=== PATIENT | female | born 1955 ===

== ENCOUNTER 2017-05-15 09:28 | Inpatient (IN) | payer OTHER ==
[2017-05-15 09:33] VITALS: BMI 34.7
--- NOTE | 2017-05-15 09:47 | C.PDOC ---
History Of Present Illness 62 Y/O FEMALE REFERRED BY PMD FOR FURTHER EVALUATION OF COUGH, SOB, NEW ONSET WHEEZING X 5 DAYS. PATIENT STATES SHE SAW PMD FOR SAME YEST, WAS STARTED ON ZPAK AND AUGMENTIN 875 05/14. PATIENT ADVISED TO COME TO ER IF PERSIST OR WORSENING SX. LAST DOSE 05/14. PATIENT ADMITS TO [facility] AND DENIES HO LUNG DISEASE OR ASSOCIATED CP. RETURNED FROM [facility] 05[facility]. SP OUTPT XRAY +RUL PNEUMONIA EXAM MILD DIST NONTOXIC HEENT NEG LUNGS +TACHYPNEA, SOB W MILD EXERTION SPEAKING FULL SENTENCES +B/L WHEEZE EXP SCATTERED NO EDEMA REMAINDER NEG Time Seen by Provider: 05/15/17 09:36 Chief Complaint (Nursing): Cough, Cold, Congestion History Per: Patient History/Exam Limitations: no limitations Onset/Duration Of Symptoms: Days Current Symptoms Are (Timing): Still Present Past Medical History Reviewed: Historical Data, Nursing Documentation, Vital Signs Vital Signs: Last Vital Signs Temp 100.5 F H 05/15/17 11:00 Pulse 84 05/15/17 10:50 Resp 20 05/15/17 10:50 BP 120/85 05/15/17 10:50 Pulse Ox 98 05/15/17 10:50 Surgical History: No Surg Hx Family History: States: No Known Family Hx Review Of Systems Constitutional: Negative for: Fever, Chills Cardiovascular: Negative for: Chest Pain Respiratory: Positive for: Cough, Shortness of Breath, Wheezing Gastrointestinal: Negative for: Nausea, Vomiting Skin: Negative for: Rash Physical Exam - Physical Exam Appears: Non-toxic, Other (Mild distress) Skin: Warm, Dry, No Rash Head: Atraumatic, Normacephalic Eye(s): bilateral: Normal Inspection Oral Mucosa: Moist Throat: Normal, No Erythema, No Exudate Neck: Normal ROM, Supple Cardiovascular: Rhythm Regular Respiratory: No Rales, No Rhonchi, Wheezing (B/L scattered expiratory ), Other ( Tachypnea, sob with mild excertion. Speaking in full sentences) Gastrointestinal/Abdominal: Soft, No Tenderness, No Guarding, No Rebound Extremity: No Pedal Edema, Capillary Refill (<2 seconds) Neurological/Psych: Oriented x3, Normal Speech ED Course And Treatment - Laboratory Results Result Diagrams: 05/15/17 10:08 05/15/17 10:08 ECG: Interpreted By Me, Viewed By Me ECG Rhythm: Sinus Rhythm ECG Interpretation: Normal Rate From EC (BPM) O2 Sat by Pulse Oximetry: 96 (RA) Pulse Ox Interpretation: Normal Progress - Re-Evaluation Re-evaluation Note: 05/15/17 09:47 D/W DR MILLS AWARE OF ER FINDINGS. ADMIT 05/15/17 09:48 RECENT OUTPT CXR DONE - Data Reviewed Data Reviewed: Lab, Diagnostic imaging, EKG, Old records - Continuity of Care Discussed patient case with:: Patient, Family-HIPPA compliant, PMD Disposition Counseled Patient/Family Regarding: Studies Performed, Diagnosis - Disposition Disposition: HOSPITALIZED Disposition Time: 09:48 Condition: STABLE - POA Present On Arrival: None - Clinical Impression Clinical Impression: Pneumonia, Dyspnea - Scribe Statement The provider has reviewed the documentation as recorded by the Scribprecious Smith All medical record entries made by the Scribe were at my direction and personally dictated by me. I have reviewed the chart and agree that the record accurately reflects my personal performance of the history, physical exam, medical decision making, and the department course for this patient. I have also personally directed, reviewed, and agree with the discharge instructions and disposition. Decision To Admit - Pt Status Changed To: Hospital Disposition Of: Observation - . Bed Request Type: Regular Admitting Physician: Rajesh Mills Patient Diagnosis: Pneumonia, Dyspnea
[2017-05-15] MEDS ORDERED: Moxifloxacin IV 400mg/250ml NS 400 MG/250 ML BAG IV STA (09:49)
[2017-05-15] MEDS ORDERED: Albuterol 0.083% Inhal Sol (2.5 mg/3 mL) UD INH STA (09:50)
[2017-05-15 10:13] LABS: BASO % 0.4 % (0.0-2.0); EOS % 0.5 % (0.0-4.0); HEMOGLOBIN 12.3 g/dL (11.0-16.0); LYMPH # 0.7 K/uL (1.0-4.3); LYMPH % 18.3 % (20.0-40.0); MEAN CELL VOLUME 77.4 fL (81.0-99.0); MEAN CORPUSCULAR HEMOGLOBIN 25.4 pg (27.0-31.0); MEAN CORPUSCULAR HGB CONC 32.8 g/dL (33.0-37.0); MEAN PLATELET VOLUME 9.5 fL (7.2-11.7); MONO # 0.5 K/uL (0.0-0.8); MONO % 11.5 % (0.0-10.0); NEUT # 2.8 K/uL (1.8-7.0); NEUT % 69.3 % (50.0-75.0); NRBC % 0.1 % (0.0-2.0); RBC 4.84 Mil/uL (3.80-5.20); RED CELL DISTRIBUTION WIDTH 14.9 % (11.5-14.5)
[2017-05-15] MEDS ORDERED: Albuterol 0.083% Inhal Sol (2.5 mg/3 mL) UD ONE (10:17)
[2017-05-15 10:25] LABS: ALB/GLOB RATIO 1.1 (1.0-2.1); ALBUMIN 3.9 g/dL (3.5-5.0); ALT/SGPT 30 U/L (9-52); AST/SGOT 47 U/L (14-36); BLOOD UREA NITROGEN 14 mg/dL (7-17); CALCIUM 8.6 mg/dl (8.6-10.4); GFR AFRICAN-AMERICAN > 60; GFR NON-AFRICAN AMERICAN > 60
[2017-05-15] MEDS ORDERED: Azithromycin 500mg/250ML NS 500 MG/250 ML BAG IVPB STA (10:44)
[2017-05-15] MEDS ORDERED: cefTRIAXone IV 1 gm in Dextros 50 ML IVPB ONE ×2 (10:46→11:10)
[2017-05-15 11:01] VITALS: RESP 20
[2017-05-15] MEDS ORDERED: Azithromycin 500 MG in Sodium Chloride 0.9% 250 ML IVPB ONE (12:30)
[2017-05-15] MEDS: Promethazine DM 6.25 mg-15 mg/5 ml Syrup PO PRN ×2 (13:42→19:52)
[2017-05-15] MEDS: Albuterol-Ipratrop 3 mg / 0.5 (3 ml) UD INH SCH ×2 (13:52→20:12)
[2017-05-15] MEDS ORDERED: Albuterol-Ipratrop 3 mg / 0.5 (3 ml) UD INH SCH (14:00)
--- NOTE | 2017-05-15 14:48 | CT ---
CT chest without IV contrast Indication: Pneumonia Technique: Contiguous axial images were obtained through the chest without intravenous contrast enhancement. Sagittal and coronal reconstructions were generated and reviewed. This CT exam was performed using 1 or more of the following dose reduction techniques: Automated exposure control, adjustment of the MAA and/or kV according to patient size, and/or use of iterative reconstruction technique. Radiation dose (DLP): 779. 40 MGy-cm. Comparison: Chest x-ray performed 05/14/17 Findings: Visualized portions of the inferior thyroid gland appear unremarkable. The noncontrast mediastinal and hilar vascular structures appear grossly unremarkable. The heart appears within normal limits of size. Patchy nodular and ground-glass bilateral pulmonary opacities with mid lung predominance. More focal consolidation noted within the medial inferior aspect of the right lower lobe, hilar/infrahilar regions. No pleural effusion. No pneumothorax. Limited visualization of the noncontrast upper abdomen appears grossly unremarkable. Multilevel degenerative changes. Impression: Patchy nodular and ground-glass bilateral pulmonary opacities with mid lung predominance. More focal consolidation noted within the medial inferior aspect of the right lower lobe, hilar/infrahilar regions. Constellation of findings suspicious for multifocal pneumonia. Recommend follow-up upon completion of treatment in order to assess for complete resolution.
--- NOTE | 2017-05-15 21:52 | CP.PCM.HP ---
History of Present Illness - History of Present Illness History of Present Illness: Chief complaint: Cough HPI: 62-year-old female with a history of osteoarthritis hypothyroidism came to the office yesterday with increasing coughing episodes. In my office patient had a fever of 104 and also I advised the patient to have x -ray of the chest showing evidence of right upper lung pneumonia, suggested to get hospitalized. But patient initially refused and went home. Patient started on Augmentin, Zithromax. This morning patient still continues to have a cough, was not feeling well, and also feeling extremely weak and tired, so she came into the emergency room. Patient recently returned from [place] last week, while she was there at least 2 times the patient was having sickness, and also took antibiotic in [place]. Here patient also started on a Z-Chadd a few days ago, in spite of that there was no improvement in the symptoms. she continues to have increasing cough, preoperative, chills, sweating. The patient did not realize that she was having any fever. Patient did not have any history of tuberculosis, or pneumonia in the past Past medical history: Hypothyroidism, osteoarthritis Allergies no known drug allergy Personal history nonsmoker nonalcoholic Family history significant for hypertension, hypothyroidism, congestive heart failure Surgical history none Medications reviewed Review of system: Headache motor, no nausea, poor appetite, chest pain noted, vomiting present, no diarrhea, cough with mucus production. On examination: Vital signs reviewed No neck vein distention noted Decreased air entry in the right lung field, rales noted CVS regular heart sound, no murmur noted Abdomen soft, nontender. 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 Assessment and recommendation: 62-year-old female now having low-grade fever, hypothyroidism and osteoarthritis , admitted with failed outpatient treatment for possible pneumonia Right upper lung, underlying tumor process cannot be ruled out. Possibly due to isolation. Will get afb Antibiotic. Bronchodilators. We will follow-up the patient if no improvement patient may need bronchoscopy Present on Admission - Present on Admission Any Indicators Present on Admission: No History of DVT/PE: No History of Uncontrolled Diabetes: No Urinary Catheter: No Decubitus Ulcer Present: No Past Patient History - Past Social History Smoking Status: Never Smoked - ENDOCRINE/METABOLIC Hx Hypothyroidism: Yes - PSYCHIATRIC Hx Substance Use: No - SURGICAL HISTORY Hx Surgeries: Yes Hx Hysterectomy: Yes - ANESTHESIA Hx Anesthesia: Yes Hx Anesthesia Reactions: No Hx Malignant Hyperthermia: No Meds Allergies/Adverse Reactions: Allergies Allergy/AdvReac Type Severity Reaction Status Date / Time No Known Allergies Allergy Verified 05/15/17 09:32 Results - Vital Signs Recent Vital Signs: Last Vital Signs Temp 98.4 F 05/15/17 15:00 Pulse 74 05/15/17 15:00 Resp 20 05/15/17 15:00 BP 100/61 05/15/17 15:00 Pulse Ox 96 05/15/17 19:50 - Labs Result Diagrams: 05/15/17 10:08 05/15/17 10:08 Labs: Laboratory Results - last 24 hr 05/15/17 05/15/17 10:08 10:08 WBC 4.0 L RBC 4.84 Hgb 12.3 Hct 37.5 MCV 77.4 L MCH 25.4 L MCHC 32.8 L RDW 14.9 H Plt Count 114 L MPV 9.5 Neut % (Auto) 69.3 Lymph % (Auto) 18.3 L [place] % (Auto) 11.5 H Eos % (Auto) 0.5 Baso % (Auto) 0.4 Neut # (Auto) 2.8 Lymph # (Auto) 0.7 L [place] # (Auto) 0.5 Eos # (Auto) 0.0 Baso # (Auto) 0.0 Differential Comment Sodium 136 Potassium 3.5 L Chloride 99 Carbon Dioxide 24 Anion Gap 17 BUN 14 Creatinine 0.8 Est GFR ( Amer) > 60 Est GFR (Non-Af Amer) > 60 Random Glucose 118 H Calcium 8.6 Total Bilirubin 0.5 AST 47 H ALT 30 Alkaline Phosphatase 61 Total Protein 7.5 Albumin 3.9 Globulin 3.7 Albumin/Globulin Ratio 1.1
[2017-05-16] MEDS: Albuterol-Ipratrop 3 mg / 0.5 (3 ml) UD INH SCH ×5 (01:55→20:33)
[2017-05-16] MEDS: Promethazine DM 6.25 mg-15 mg/5 ml Syrup PO PRN ×3 (04:45→21:19)
[2017-05-16] MEDS: Levothyroxine 112 MCG TAB PO SCH (06:02)
[2017-05-16 06:37] LABS: BASO % 0.8 % (0.0-2.0); EOS % 0.6 % (0.0-4.0); HEMOGLOBIN 11.1 g/dL (11.0-16.0); LYMPH # 1.2 K/uL (1.0-4.3); LYMPH % 38.9 % (20.0-40.0); MEAN CELL VOLUME 77.7 fL (81.0-99.0); MEAN CORPUSCULAR HEMOGLOBIN 25.2 pg (27.0-31.0); MEAN CORPUSCULAR HGB CONC 32.4 g/dL (33.0-37.0); MEAN PLATELET VOLUME 9.3 fL (7.2-11.7); MONO # 0.4 K/uL (0.0-0.8); MONO % 14.8 % (0.0-10.0); NEUT # 1.4 K/uL (1.8-7.0); NEUT % 44.9 % (50.0-75.0); NRBC % 0.1 % (0.0-2.0); RBC 4.42 Mil/uL (3.80-5.20); RED CELL DISTRIBUTION WIDTH 14.6 % (11.5-14.5)
[2017-05-16 06:50] LABS: ALB/GLOB RATIO 1.1 (1.0-2.1); ALBUMIN 3.3 g/dL (3.5-5.0); ALT/SGPT 33 U/L (9-52); AST/SGOT 36 U/L (14-36); BLOOD UREA NITROGEN 7 mg/dL (7-17); CALCIUM 8.1 mg/dl (8.6-10.4); GFR AFRICAN-AMERICAN > 60; GFR NON-AFRICAN AMERICAN > 60
[2017-05-16 09:30] LABS: LEGIONELLA AG URINE NEGATIVE (NEGATIVE)
[2017-05-16] MEDS ORDERED: Levothyroxine 112 MCG TAB PO SCH (10:00)
[2017-05-16] MEDS ORDERED: Potassium Chloride 20 mEq ER Tab PO ONE (10:00)
[2017-05-16] MEDS: Azithromycin 500 MG in Sodium Chloride 0.9% 250 ML IVPB SCH (10:22)
[2017-05-16 13:05] LABS: MYCOPLASMA PNEUMONIAE IGM NEGATIVE (NEGATIVE)
--- NOTE | 2017-05-16 15:16 | CP.PCM.PN ---
Subjective - Date & Time of Evaluation Date of Evaluation: 05/16/17 Time of Evaluation: 15:15 - Subjective Subjective: Patient currently feeling better, cough is still noted, but is slightly wheezing , but no mucus production. No fever. No chest pain or shortness of breath. Eating well. No diarrhea. On examination: HEENT PERRLA, neck supple No thyromegaly was noted and no cervical adenopathy noted Minimal right-sided wheezing noted CVS regular heart sound, no murmur Abdomen soft and no organomegaly Extremities no pedal edema, no leg swelling, pedal pulses are good. [employer] WORKER alert awake oriented x3 no functional neurological deficit. CT of the chest is reviewed. A right upper lung infiltrate changes. Assessment and recommendation: 62-year-old female with history of hypothyroidism, admitted with the acute pneumonia Failed outpatient treatment. Will continue the IV antibiotic. Possibly repeat a chest x-ray in the morning, if she's clinically stable, possible discharge tomorrow Objective - Vital Signs/Intake and Output Vital Signs (last 24 hours): Temp Pulse Resp BP Pulse Ox 98.6 F 85 20 121/85 96 05/16/17 07:51 05/16/17 07:51 05/16/17 07:51 05/16/17 07:51 05/16/17 12:00 Intake and Output: 05/16/17 05/16/17 06:59 18:59 Intake Total 690 Balance 690 - Medications Medications: Current Medications Albuterol/Ipratropium (Duoneb 3 Mg/0.5 Mg (3 Ml) Ud) 3 ml INH RQ6 [facility] Last Admin: 05/16/17 14:28 Dose: 3 ml Ceftriaxone Sodium 1 gm/ (Sodium Chloride) 100 mls @ 100 mls/hr IVPB Q12H [facility] PRN Reason: Protocol Stop: 05/20/17 23:01 Last Admin: 05/16/17 12:00 Dose: 100 mls/hr Azithromycin 500 mg/ Sodium (Chloride) 250 mls @ 250 mls/hr IVPB DAILY [facility] PRN Reason: Protocol Stop: 05/21/17 10:01 Last Admin: 05/16/17 10:22 Dose: 250 mls/hr Levothyroxine Sodium (Synthroid) 112 mcg PO DAILY@0630 [facility] Last Admin: 05/16/17 06:02 Dose: 112 mcg Pantoprazole Sodium (Protonix Inj) 40 mg IVP DAILY [facility] Last Admin: 05/16/17 09:22 Dose: 40 mg Promethazine HCl/Dextromethorphan (Phenergan Dm Syrup) 5 ml PO Q6H PRN PRN Reason: Cough Last Admin: 05/16/17 13:58 Dose: 5 ml - Labs Labs: 05/16/17 06:27 05/16/17 06:27
--- NOTE | 2017-05-16 16:35 | CARD ---
APPROVED REPORT EKG Measurement Heart [id number] <Conclusion> Normal sinus rhythm Nonspecific T wave abnormality Abnormal ECG
[2017-05-17] MEDS: Albuterol-Ipratrop 3 mg / 0.5 (3 ml) UD INH SCH ×3 (01:32→14:04)
[2017-05-17] MEDS: Promethazine DM 6.25 mg-15 mg/5 ml Syrup PO PRN ×3 (05:35→17:34)
[2017-05-17] MEDS: Levothyroxine 112 MCG TAB PO SCH (05:36)
[2017-05-17] MEDS: Azithromycin 500 MG in Sodium Chloride 0.9% 250 ML IVPB SCH (09:36)
--- NOTE | 2017-05-17 12:57 | RAD ---
PROCEDURE: CHEST RADIOGRAPH, 1 VIEW HISTORY: follow up on pneumonia COMPARISON: 05/14/2017 two-view chest. 05/15/2017 CT thorax FINDINGS: LUNGS: Persistent right upper lobe infiltrate. PLEURA: No pneumothorax or pleural fluid seen. CARDIOVASCULAR: No radiographic findings to suggest acute or significant cardiovascular disease. OSSEOUS STRUCTURES: No significant abnormalities. VISUALIZED UPPER ABDOMEN: Normal. OTHER FINDINGS: None. IMPRESSION: Stable right upper lobe infiltrate. No new findings.
[2017-05-17] MEDS ORDERED: MethylPREDNISolone 40 mg Vial IVP STA (13:36)
--- NOTE | 2017-05-17 14:52 | CP.PCM.PN ---
Subjective - Date & Time of Evaluation Date of Evaluation: 05/17/17 Time of Evaluation: 14:51 - Subjective Subjective: Patient has no more fever. Eating well. Denies any mucus production. Still having cough with wheezing. Especially in the right lung. Diarrhea negative. On examination: HEENT PERRLA, neck supple No thyromegaly was noted and no cervical adenopathy noted Decreased lung area entry noted with wheezing on the right side area CVS regular heart sound, no murmur Abdomen soft and no organomegaly Extremities no pedal edema, no leg swelling, pedal pulses are good. 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 No recent labs. Mycoplasma, Chlamydia negative. gOld QuantiFERON pending. Assessment and accommodation: 62 female with history of hypothyroidism and osteoarthritis admitted to the hospital with acute pneumonia involving the right upper lung, with high fever. Currently and antibiotic. Wheezing noted. Possible bronchitis, had Solu-Medrol low dose and will follow the patient. If she improves. Possible discharge in the morning Objective - Vital Signs/Intake and Output Vital Signs (last 24 hours): Temp Pulse Resp BP Pulse Ox 97.5 F L 62 20 108/72 98 05/17/17 07:59 05/17/17 07:59 05/17/17 07:59 05/17/17 07:59 05/17/17 12:00 Intake and Output: 05/17/17 05/17/17 06:59 18:59 Intake Total 1150 750 Output Total 2 Balance 1148 750 - Medications Medications: Current Medications Albuterol/Ipratropium (Duoneb 3 Mg/0.5 Mg (3 Ml) Ud) 3 ml INH RQ6 [facility] Last Admin: 05/17/17 14:04 Dose: 3 ml Ceftriaxone Sodium 1 gm/ (Sodium Chloride) 100 mls @ 100 mls/hr IVPB Q12H [facility] PRN Reason: Protocol Stop: 05/20/17 23:01 Last Admin: 05/17/17 10:53 Dose: 100 mls/hr Levothyroxine Sodium (Synthroid) 112 mcg PO DAILY@0630 [facility] Last Admin: 05/17/17 05:36 Dose: 112 mcg Methylprednisolone (Solu-Medrol) 20 mg IVP Q12 [facility] Pantoprazole Sodium (Protonix Inj) 40 mg IVP DAILY [facility] Last Admin: 05/17/17 09:36 Dose: 40 mg Promethazine HCl/Dextromethorphan (Phenergan Dm Syrup) 5 ml PO Q6H PRN PRN Reason: Cough Last Admin: 05/17/17 11:45 Dose: 5 ml - Labs Labs: 05/16/17 06:27 05/16/17 06:27
[2017-05-17] MEDS: MethylPREDNISolone 40 mg Vial IVP SCH (22:00)
[2017-05-18 00:48] VITALS: O2SAT 96
[2017-05-18 01:22] LABS: TB ANTIGEN MINUS NIL 0.59 IU/mL
[2017-05-18] MEDS: Albuterol-Ipratrop 3 mg / 0.5 (3 ml) UD INH SCH ×3 (01:25→13:23)
[2017-05-18] MEDS: Promethazine DM 6.25 mg-15 mg/5 ml Syrup PO PRN ×2 (05:40→13:57)
[2017-05-18] MEDS: Levothyroxine 112 MCG TAB PO SCH (05:52)
[2017-05-18 08:15] VITALS: BP 115/74; PULSE 63; TEMP 97.9
[2017-05-18] MEDS: MethylPREDNISolone 40 mg Vial IVP SCH (11:24)
[2017-05-18] MEDS ORDERED: Azithromycin 500 MG in Sodium Chloride 0.9% 250 ML IVPB STA (11:52)
--- NOTE | 2017-05-18 13:45 | CP.PCM.PN ---
Subjective - Date & Time of Evaluation Date of Evaluation: 05/18/17 Time of Evaluation: 13:42 - Subjective Subjective: pt admitted with high fever and pneumonia. even though quantiferon positive (pt possible latent TB), now has no signs of TB like wt loss, night sweats, hemoptysis,. less likely pt has TB. she will be d /c home today and f/u in my office to continue to monitor the xray resolution. she will continue the antibiotic oral for 7 days more Objective - Vital Signs/Intake and Output Vital Signs (last 24 hours): Temp Pulse Resp BP Pulse Ox 97.9 F 63 20 115/74 96 05/18/17 08:14 05/18/17 08:14 05/18/17 08:14 05/18/17 08:14 05/18/17 08:14 Intake and Output: 05/18/17 05/18/17 06:59 18:59 Intake Total 760 Balance 760 - Medications Medications: Current Medications Albuterol/Ipratropium (Duoneb 3 Mg/0.5 Mg (3 Ml) Ud) 3 ml INH RQ6 [facility] Last Admin: 05/18/17 13:23 Dose: Not Given Ceftriaxone Sodium 1 gm/ (Sodium Chloride) 100 mls @ 100 mls/hr IVPB Q12H [facility] PRN Reason: Protocol Stop: 05/20/17 23:01 Last Admin: 05/18/17 11:24 Dose: 100 mls/hr Levothyroxine Sodium (Synthroid) 112 mcg PO DAILY@0630 [facility] Last Admin: 05/18/17 05:52 Dose: 112 mcg Methylprednisolone (Solu-Medrol) 20 mg IVP Q12 [facility] Last Admin: 05/18/17 11:24 Dose: 20 mg Pantoprazole Sodium (Protonix Inj) 40 mg IVP DAILY [facility] Last Admin: 05/18/17 11:24 Dose: 40 mg Promethazine HCl/Dextromethorphan (Phenergan Dm Syrup) 5 ml PO Q6H PRN PRN Reason: Cough Last Admin: 05/18/17 05:40 Dose: 5 ml - Labs Labs: 05/16/17 06:27 05/16/17 06:27
--- NOTE | 2017-05-19 20:56 | CP.PCM.DIS ---
Provider - Provider Date of Admission: 05/17/17 14:07 Attending physician: Rajesh Mills MD Hospital Course - Lab Results Lab Results: Micro Results 05/15/17 10:30 Blood Blood Culture - Preliminary NO GROWTH AFTER 4 DAYS 05/15/17 10:00 Blood Blood Culture - Preliminary NO GROWTH AFTER 4 DAYS Most Recent Lab Values WBC 3.0 K/uL (4.8-10.8) L 05/16/17 06:27 RBC 4.42 Mil/uL (3.80-5.20) 05/16/17 06:27 Hgb 11.1 g/dL (11.0-16.0) 05/16/17 06:27 Hct 34.3 % (34.0-47.0) 05/16/17 06:27 MCV 77.7 fL (81.0-99.0) L 05/16/17 06:27 MCH 25.2 pg (27.0-31.0) L 05/16/17 06:27 MCHC 32.4 g/dL (33.0-37.0) L 05/16/17 06:27 RDW 14.6 % (11.5-14.5) H 05/16/17 06:27 Plt Count 99 K/uL (130-400) L 05/16/17 06:27 MPV 9.3 fL (7.2-11.7) 05/16/17 06:27 Neut % (Auto) 44.9 % (50.0-75.0) L 05/16/17 06:27 Lymph % (Auto) 38.9 % (20.0-40.0) 05/16/17 06:27 [place] % (Auto) 14.8 % (0.0-10.0) H 05/16/17 06:27 Eos % (Auto) 0.6 % (0.0-4.0) 05/16/17 06:27 Baso % (Auto) 0.8 % (0.0-2.0) 05/16/17 06:27 Neut # (Auto) 1.4 K/uL (1.8-7.0) L 05/16/17 06:27 Lymph # (Auto) 1.2 K/uL (1.0-4.3) 05/16/17 06:27 [place] # (Auto) 0.4 K/uL (0.0-0.8) 05/16/17 06:27 Eos # (Auto) 0.0 K/uL (0.0-0.7) 05/16/17 06:27 Baso # (Auto) 0.0 K/uL (0.0-0.2) 05/16/17 06:27 Differential Comment 05/15/17 10:08 ESR 40 mm/hr (0-20) H 05/16/17 06:27 Sodium 134 mmol/L (132-148) 05/16/17 06:27 Potassium 3.5 mmol/L (3.6-5.2) L 05/16/17 06:27 Chloride 99 mmol/L (98-107) 05/16/17 06:27 Carbon Dioxide 24 mmol/L (22-30) 05/16/17 06:27 Anion Gap 15 (10-20) 05/16/17 06:27 BUN 7 mg/dL (7-17) 05/16/17 06:27 Creatinine 0.6 mg/dL (0.7-1.2) L 05/16/17 06:27 Est GFR ( Amer) > 60 05/16/17 06:27 Est GFR (Non-Af Amer) > 60 05/16/17 06:27 Random Glucose 95 mg/dL (65-105) 05/16/17 06:27 Calcium 8.1 mg/dl (8.6-10.4) L 05/16/17 06:27 Total Bilirubin 0.3 mg/dL (0.2-1.3) 05/16/17 06:27 AST 36 U/L (14-36) D 05/16/17 06:27 ALT 33 U/L (9-52) 05/16/17 06:27 Alkaline Phosphatase 54 U/L (38-126) 05/16/17 06:27 Total Protein 6.4 g/dL (6.3-8.3) 05/16/17 06:27 Albumin 3.3 g/dL (3.5-5.0) L 05/16/17 06:27 Globulin 3.1 gm/dL (2.2-3.9) 05/16/17 06:27 Albumin/Globulin Ratio 1.1 (1.0-2.1) 03/15/18 06:27 TSH 3rd Generation 9.86 mIU/L (0.46-4.68) H 05/16/17 06:27 Ur L.pneumophila Ag Negative (NEGATIVE) 05/16/17 06:27 Mycoplasma pneumon IgM Negative (NEGATIVE) 05/16/17 06:27 TB Test (QFT) Nil 0.29 IU/mL 05/16/17 06:27 TB Test Mitogen - Nil >10.00 IU/mL 05/16/17 06:27 TB Test TB - Nil 0.59 IU/mL 05/16/17 06:27 TB Test (QFT) Positive (Negative) H 05/16/17 06:27 Discharge Plan - Follow Up Plan Condition: STABLE Disposition: HOME/ ROUTINE Instructions: Pneumonia in Adults, Shortness of Breath (Dyspnea) (DC) Additional Instructions: d/c home today and f/u in on in my office for f/u cxr Referrals: Rajesh Mills MD [Staff Provider] -
== END 2017-05-18 15:30 | disposition home or self-care (01) | DRG 195 ==
LOC: C.ER 09:28 → C.3T 09:50 → OBSVTOIN 05-17 14:07 → C.3T 05-18 09:56
PROVIDERS: ADMIT Internal Medicine; ATTEND Internal Medicine
DX: J18.9 Pneumonia, unspecified organism (principal); E03.9 Hypothyroidism, unspecified; M19.90 Unspecified osteoarthritis, unspecified site